=== PATIENT | female | born 1980 | race Caucasian/White ===

== ENCOUNTER 2021-07-19 09:03 | Emergency (ER) | payer SELFPAY ==
[~2021-07-19] VITALS: Ht 160 cm; Wt 84.0 kg
--- NOTE | 2021-07-19 09:13 | ED General ---
General Stated Complaint: DIZZINESS; LIGHT-HEADED; ABN EKG History of Present Illness Date Seen by Provider: July 19, 2021 Time Seen by Provider: 09:11 Initial Comments 40-year-old female presents with some episodes of feeling dizzy and lightheadedness. She reports that she been having them on and off for about a week. She does not know of anything that makes it better or worse. She reports that she checked her blood pressure during these episodes and neck is normal. She reports she has anxiety so sometimes she gets chest pain but feels it is likely from the anxiety. She also has some associated shortness of breath when she has these anxiety attacks. These however do not seem to correlate with her dizziness. She denies any recent illnesses, fever, chills, nausea or vomiting. Patient works as a EMT and reports that yesterday they did a EKG and they thought it was may be abnormal but she not sure how. Patient reports she just had a negative test at the clinic. Patient is not currently having any symptoms at this time Allergies and Home Medications Patient Home Medication List Home Medication List Reviewed: Yes Review of Systems Review of Systems Constitutional: see HPI; No chills; dizziness; No fever EENTM: no symptoms reported Respiratory: see HPI Cardiovascular: see HPI; No edema, No palpitations, No syncope Gastrointestinal: no symptoms reported Genitourinary: no symptoms reported Musculoskeletal: no symptoms reported Skin: no symptoms reported Psychiatric/Neurological: See HPI, Anxiety Hematologic/Lymphatic: No Symptoms Reported Immunological/Allergic: no symptoms reported Physical Exam Vital Signs Vital Signs - First Documented 07/19/21 09:09 Temp 36.5 Pulse 63 Resp 18 B/P (MAP) 132/83 (99) Pulse Ox 96 O2 Delivery Room Air Capillary Refill : Height, Weight, BMI Height: '" Weight: lbs. oz. kg; BMI Method: General Appearance: No Apparent Distress, WD/WN Neck: Normal Inspection, Non Tender Respiratory: Normal Breath Sounds, No Accessory Muscle Use Cardiovascular: Regular Rate, Rhythm, No Edema, Normal Peripheral Pulses Gastrointestinal: Non Tender, Soft Extremity: Normal Capillary Refill, Normal Range of Motion Neurologic/Psychiatric: Alert, Oriented x3, No Motor/Sensory Deficits, Normal Mood/Affect, tonsorial artist II-XII Norm as Tested, Abnormal Cerebellar Tests Skin: Normal Color, Warm/Dry Progress/Results/Core Measures Suspected Sepsis SIRS Temperature: Pulse: Respiratory Rate: Laboratory Tests 07/19/21 09:20: White Blood Count 9.2 Blood Pressure / Mean: Laboratory Tests 07/19/21 09:20: Creatinine 0.69, Platelet Count 280, Total Bilirubin 0.2 Results/Orders Lab Results Laboratory Tests Test 07/19/21 09:20 Range/Units White Blood Count 9.2 4.3-11.0 10^3/uL Red Blood Count 4.29 3.80-5.11 10^6/uL Hemoglobin 13.5 11.5-16.0 g/dL Hematocrit 38 35-52 % Mean Corpuscular Volume 88 80-99 fL Mean Corpuscular Hemoglobin 32 25-34 pg Mean Corpuscular Hemoglobin Concent 36 32-36 g/dL Red Cell Distribution Width 13.2 10.0-14.5 % Platelet Count 280 130-400 10^3/uL Mean Platelet Volume 10.6 9.0-12.2 fL Immature Granulocyte % (Auto) 0 % Neutrophils (%) (Auto) 51 42-75 % Lymphocytes (%) (Auto) 40 12-44 % Monocytes (%) (Auto) 7 0-12 % Eosinophils (%) (Auto) 1 0-10 % Basophils (%) (Auto) 0 0-10 % Neutrophils # (Auto) 4.7 1.8-7.8 10^3/uL Lymphocytes # (Auto) 3.7 1.0-4.0 10^3/uL Monocytes # (Auto) 0.7 0.0-1.0 10^3/uL Eosinophils # (Auto) 0.1 0.0-0.3 10^3/uL Basophils # (Auto) 0.0 0.0-0.1 10^3/uL Immature Granulocyte # (Auto) 0.0 0.0-0.1 10^3/uL Sodium Level 140 135-145 MMOL/L Potassium Level 4.1 3.6-5.0 MMOL/L Chloride Level 105 98-107 MMOL/L Carbon Dioxide Level 23 21-32 MMOL/L Anion Gap 12 5-14 MMOL/L Blood Urea Nitrogen 24 H 7-18 MG/DL Creatinine 0.69 0.60-1.30 MG/DL Estimat Glomerular Filtration Rate 113 BUN/Creatinine Ratio 35 Glucose Level 96 70-105 MG/DL Calcium Level 9.3 8.5-10.1 MG/DL Corrected Calcium 9.0 8.5-10.1 MG/DL Magnesium Level 2.1 1.6-2.4 MG/DL Total Bilirubin 0.2 0.1-1.0 MG/DL Aspartate Amino Transf (AST/SGOT) 23 5-34 U/L Alanine Aminotransferase (ALT/SGPT) 32 0-55 U/L Alkaline Phosphatase 89 40-136 U/L Troponin I < 0.30 <0.30 NG/ML C-Reactive Protein 0.38 <0.50 MG/DL Total Protein 7.6 6.4-8.2 GM/DL Albumin 4.4 3.2-4.5 GM/DL My Orders Orders - ALEJANDRA FULTON L DO Ed Iv/Invasive Line Start (07/19/21 09:13) Ekg Tracing (07/19/21 09:13) Monitor-Rhythm Ecg Trace Only (07/19/21 09:13) Cbc With Automated Diff (07/19/21 09:13) Comprehensive Metabolic Panel (07/19/21:13) Magnesium (07/19/21 09:13) Crp Fs (07/19/21 09:13) Troponin I Fs (07/19/21 09:13) Chest 1 View Ap/Pa Only (07/19/21 09:13) Vital Signs/I&O 07/19/21 07/19/21 09:09 09:58 Temp 36.5 36.5 Pulse 63 70 Resp 18 18 B/P (MAP) 132/83 (99) 102/82 Pulse Ox 96 95 O2 Delivery Room Air Room Air Capillary Refill : Progress Note : Progress Note Patient with no significant findings on labs. She has a negative EKG for any acute changes, negative troponin, negative chest x-ray and is not having symptoms at this time. I did recommend she keep a journal of when her episodes happen in activities, etc. I also encouraged her to follow-up with her primary care provider and consider a cardiology consult. Patient stable and discharged home ECG Initial ECG Impression Date: July 19, 2021 Initial ECG Impression Time: 09:14 Initial ECG Rhythm: Normal Sinus Comment low voltage QRS, T wave inversion V1-V3 no acute elevation or findings low voltage likely from lead placement and body habitus Diagnostic Imaging Diagonstic Imaging: Xray Plain Films/CT/US/NM/MRI: chest Comments Date of Exam:07/19/21 CHEST 1 VIEW AP/PA ONLY Indication: Dizziness. Findings: Lungs are clear. There is no failure, effusion or pneumothorax. Impression: No acute-appearing abnormality. Departure Impression Primary Impression: Dizziness Disposition: 01 HOME, SELF-CARE Condition: Stable Departure-Patient Inst. Referrals: BEN TOM APRN (PCP) Primary Care Physician [facility] (Family) Primary Care Physician Patient Instructions: Dizziness, Adult ED Add. Discharge Instructions: Please consider journaling your episodes of dizziness that would include possible times a day, activities, foods and any other pertinent information that you feel would help. Please follow-up with your primary care provider and discuss a possible cardiology consult for further evaluation Return to the ER as needed ALEJANDRA FULTON DO July 19, 2021 09:13
[2021-07-19 09:36] LABS: BASOPHILS % (AUTO) 0 % (0-10); EOSINOPHILS # (AUTO) 0.1 10^3/uL (0.0-0.3); EOSINOPHILS % (AUTO) 1 % (0-10); HEMATOCRIT 38 % (35-52); HEMOGLOBIN 13.5 g/dL (11.5-16.0); LYMPHOCYTES # (AUTO) 3.7 10^3/uL (1.0-4.0); LYMPHOCYTES % (AUTO) 40 % (12-44); MEAN CORPUSCULAR HEMOGLOBIN 32 pg (25-34); MEAN CORPUSCULAR HGB CONC 36 g/dL (32-36); MEAN CORPUSCULAR VOLUME 88 fL (80-99); MEAN PLATELET VOLUME 10.6 fL (9.0-12.2); MONOCYTES # (AUTO) 0.7 10^3/uL (0.0-1.0); MONOCYTES % (AUTO) 7 % (0-12); NEUTROPHILS # (AUTO) 4.7 10^3/uL (1.8-7.8); NEUTROPHILS % (AUTO) 51 % (42-75); PLATELET COUNT 280 10^3/uL (130-400); WHITE BLOOD COUNT 9.2 10^3/uL (4.3-11.0)
--- NOTE | 2021-07-19 09:46 | Diagnostic Imaging Report ---
Indication: Dizziness. Findings: Lungs are clear. There is no failure, effusion or pneumothorax. Impression: No acute-appearing abnormality. Dictated by: Dictated on workstation # [id number]
[2021-07-19 09:50] LABS: ALANINE AMINOTRANSFERASE 32 U/L (0-55); ALBUMIN 4.4 GM/DL (3.2-4.5); ALKALINE PHOSPHATASE 89 U/L (40-136); BILIRUBIN,TOTAL 0.2 MG/DL (0.1-1.0); BUN/CREATININE RATIO 35; CALCIUM 9.3 MG/DL (8.5-10.1); CARBON DIOXIDE 23 MMOL/L (21-32); CHLORIDE 105 MMOL/L (98-107); CREATININE SERUM 0.69 MG/DL (0.60-1.30); GFR ESTIMATED 113; GLUCOSE 96 MG/DL (70-105); MAGNESIUM 2.1 MG/DL (1.6-2.4); POTASSIUM 4.1 MMOL/L (3.6-5.0); SODIUM 140 MMOL/L (135-145); TOTAL PROTEIN 7.6 GM/DL (6.4-8.2)
[2021-07-19 09:58] VITALS: BP 102/82
== END 2021-07-19 09:59 | disposition home or self-care (01) ==
LOC: EDUNIT# 09:03 → ER FS 09:06
DX: R42 Dizziness and giddiness (principal)
CPT/HCPCS: 36415; 71045; 80053; 83735; 84484; 85025; 86141; 93005; 93041

== ENCOUNTER → 2022-05-01 | Outpatient (CLI) | payer BC ==
--- NOTE | 2022-05-01 17:50 | Diagnostic Imaging Report ---
INDICATION: Fracture. COMPARISON: I have no priors. FINDINGS: There is an avulsion fracture pattern without distraction horizontally oriented at the base of the 5th metatarsal. This appears subacute. No articular injury. The remaining bony structures unremarkable. IMPRESSION: Extraarticular base 5th avulsion fracture pattern nondisplaced radiographically appears partially healed and subacute. Dictated on workstation # [id number]
== END ==
LOC: RAD FS 11:00
PROVIDERS: ATTEND Nurse Practitioner
DX: S92.355D Nondisplaced fracture of fifth metatarsal bone, left foot, subsequent encounter for fracture with routine healing (principal); X58.XXXA Exposure to other specified factors, initial encounter
CPT/HCPCS: 73630

== ENCOUNTER → 2022-06-13 | Outpatient (CLI) | payer BC ==
--- NOTE | 2022-06-13 11:20 | Diagnostic Imaging Report ---
INDICATION: Follow-up fracture. EXAMINATION: Left foot on 06/13/2022. COMPARISON: 05/01/2022 FINDINGS: 3 views of the foot redemonstrate a fracture at the base of the 5th metatarsal. Mild increased diastases is noted likely due to changes of periosteal resorption secondary to healing. No callus formation is seen. There are no dislocations or fractures. IMPRESSION: 1. Fracture at the base of 5th metatarsal as discussed above. Dictated by: Dictated on workstation # [id number]
== END ==
LOC: RAD 09:30
PROVIDERS: ATTEND Nurse Practitioner
DX: S92.355D Nondisplaced fracture of fifth metatarsal bone, left foot, subsequent encounter for fracture with routine healing (principal); X58.XXXD Exposure to other specified factors, subsequent encounter
CPT/HCPCS: 73630

== ENCOUNTER 2022-11-17 16:51 | Emergency (ER) | payer BC ==
[~2022-11-17] VITALS: Ht 160 cm; Wt 84.0 kg
[2022-11-17] MEDS ORDERED: ACETAMINOPHEN 500 MG TABLET PO ONE (17:00)
[2022-11-17] MEDS ORDERED: NS IV 1000 ML 1,000 ML IV SCH (17:00)
[2022-11-17] MEDS ORDERED: KETOROLAC INJ 15 MG/ML VIAL IVP ONE (17:00)
[2022-11-17] MEDS ORDERED: PROCHLORPERAZINE INJ 10 MG/2ML VIAL IV ONE (17:00)
[2022-11-17] MEDS ORDERED: diphenhydrAMINE INJ 50 MG/ML VIAL IVP ONE (17:00)
--- NOTE | 2022-11-17 17:02 | ED Headache ---
General Stated Complaint: ORTIZ Source: patient Exam Limitations: no limitations History of Present Illness Date Seen by Provider: Nov 17, 2022 Time Seen by Provider: 16:49 Initial Comments 42-year-old female presents after sent from the [facility] clinic for the worst headache of her life. Symptoms started abruptly with sudden onset about 55 minutes to an hour ago. She has diffuse dull throbbing without radiation. She has nausea without vomiting. She was given p.o. Zofran at the [facility] clinic and sent here because she stated the headache was the worst of her life. She does have a remote history of migraine headaches but she has not had a migraine in several years per her report. She took 2 Aleve at the outset of her symptoms which did not really help. She denies any changes in vision. No upper or lower extremity weakness numbness or tingling. She is not on any blood thinning medications. She has had a tubal ligation and denies that she could be . All other systems reviewed and negative except documented per HPI. Voice recognition software was used to help create this chart Allergies and Home Medications Allergies Coded Allergies: No Known Drug Allergies (Unverified , 11/17/22) Patient Home Medication List Home Medication List Reviewed: Yes Butalb/Acetaminophen/Caffeine (Vghglb-Fdgowzfo-Wmiz 50-325-40) 50 Mg-325 Mg-40 Mg Tablet, 1 EACH PO Q6H Prescribed by: SRAVANI FITZPATRICK MD on 11/17/22 174 Ketorolac Tromethamine (Ketorolac Tromethamine) 10 Mg Tablet, 10 MG PO TID Prescribed by: SRAVANI FITZPATRICK MD on 11/17/22 173 Sumatriptan Succinate (Sumatriptan Succinate) 50 Mg Tablet, 50 MG PO ONCE Prescribed by: SRAVANI FITZPATRICK MD on 11/17/22 174 Review of Systems Review of Systems Constitutional: see HPI Past Wgtypsw-Ooumbw-Kvfnib Hx Patient Social History Tobacco Use?: No Use of E-Cig and/or Vaping dev: No Substance use?: No Alcohol Use?: No Immunizations Up To Date First/Initial COVID19 Vaccinat: 2020 Second COVID19 Vaccination Jens: 2020 Past Medical History Surgery/Hospitalization HX: ANXIETY DEPRESSION Physical Exam Vital Signs Vital Signs - First Documented 11/17/22 16:55 Temp 36.9 Pulse 86 Resp 18 B/P (MAP) 132/94 (107) Pulse Ox 97 O2 Delivery Room Air Capillary Refill : Height, Weight, BMI Height: '" Weight: lbs. oz. kg; 32.00 BMI Method: General Appearance: WD/WN, moderate distress (Appears to be in pain) HEENT: PERRL/EOMI, normal ENT inspection, pharynx normal Neck: non-tender, full range of motion, supple, other (No meningismus) Cardiovascular: regular rate, rhythm, no murmur Respiratory: chest non-tender, lungs clear, normal breath sounds, no respiratory distress, no accessory muscle use Gastrointestinal: normal bowel sounds, non tender, soft, no organomegaly Back: normal inspection, no vertebral tenderness Extremities: normal range of motion, normal capillary refill Psychiatric: alert Crainal Nerves: normal speech Coordination/Gait: normal finger to nose, normal gait Motor/Sensory: no motor deficit, no sensory deficit, no pronator drift Skin: normal color, warm/dry Progress/Results/Core Measures Results/Orders My Orders Orders - NANETTESRAVANI Pineda DO Ct Head Wo (11/17/22 16:59) Prochlorperazine Injection (Prochlorpera (11/17/22 17:00) Diphenhydramine Injection (Diphenhydram (11/17/22 17:00) Ketorolac Injection (Ketorolac Injection (11/17/22 17:00) Ns Iv 1000 Ml (Ns Iv 1000 Ml) (11/17/22 17:00) Acetaminophen Tablet (Acetaminophen Ta (11/17/22 17:00) Medications Given in ED Current Medications Medications Dose Ordered Sig/Saroj Route Start Time Stop Time Status Last Admin Dose Admin Acetaminophen 1,000 mg ONCE ONCE PO 11/17/22 17:00 11/17/22 17:01 DC 11/17/22 17:19 1,000 MG Diphenhydramine HCl 50 mg ONCE ONCE IVP 11/17/22 17:00 11/17/22 17:01 DC 11/17/22 17:17 50 MG Ketorolac Tromethamine 15 mg ONCE ONCE IVP 11/17/22 17:00 11/17/22 17:01 DC 11/17/22 17:13 15 MG Prochlorperazine Edisylate 10 mg ONCE ONCE IV 11/17/22 17:00 11/17/22 17:01 DC 11/17/22 17:17 10 MG Vital Signs/I&O 11/17/22 11/17/22 16:55 17:31 Temp 36.9 Pulse 86 81 Resp 18 16 B/P (MAP) 132/94 (107) 114/77 (89) Pulse Ox 97 94 O2 Delivery Room Air Room Air Departure Communication (Admissions) Patient is hemodynamically stable neurologically intact. Vital signs are normal. She has no meningismus and is afebrile, no evidence for meningitis at this time. She had a sudden onset severe headache which is the worst headache of her life so CT scan was undertaken which is normal with no evidence for blee ding. She is feeling better after IV Toradol Compazine Benadryl and fluids. She is given p.o. Tylenol. She be discharged home with Toradol, Fioricet. I will give her sumatriptan and to take as needed at the first sign of a migraine headache. Impression Primary Impression: Migraine Qualified Codes: G43.909 - Migraine, unspecified, not intractable, without status migrainosus Disposition: HOME, SELF-CARE Condition: Stable Departure-Patient Inst. Referrals: OLIVIA DRIVER APRN (PCP) Primary Care Physician JONATAN YOU MD (Family) Primary Care Physician Patient Instructions: Migraines (DC) Add. Discharge Instructions: Take the Fioricet and ketorolac as prescribed as needed. The sumatriptan is if you have any further migraines to take at the onset of your headache symptoms to help them from becoming full-blown migraine headaches. Increase your fluids at home. Rest as needed. Return to the emergency department for any severe concerns. Follow-up with your primary doctor for any nonemergent needs. Scripts Sumatriptan Succinate (Sumatriptan Succinate) 50 Mg Tablet 50 MG PO ONCE for Headache for 30 Days, #10 TAB Prov: SRAVANI FITZPATRICK DO 11/17/22 Butalb/Acetaminophen/Caffeine (Mgqhob-Nqvkptqm-Wnty 50-325-40) 50 Mg-325 Mg-40 Mg Tablet 1 EACH PO Q6H for Headache for 3 Days, #12 TAB Prov: SRAVANI FITZPATRICK DO 11/17/22 Ketorolac Tromethamine (Ketorolac Tromethamine) 10 Mg Tablet 10 MG PO TID for Pain for 3 Days, #9 TAB Prov: SRAVANI FITZPATRICK DO 11/17/22 SRAVANI FITZPATRICK DO Nov 17, 2022 17:02
--- NOTE | 2022-11-17 17:17 | Diagnostic Imaging Report ---
PROCEDURE: CT head without contrast. TECHNIQUE: Multiple contiguous axial images were obtained through the brain without the use of intravenous contrast. Auto Exposure Controls were utilized during the CT exam to meet ALARA standards for radiation dose reduction. INDICATION: Sudden onset headaches. COMPARISON: None available. FINDINGS: CT of the head demonstrates no evidence of an acute intracranial abnormality. There is no evidence of intracranial hemorrhage. There is no extra-axial fluid collection, mass effect or shift. Junior and white matter differentiation appear preserved. There is no abnormal hypodensity within the basal ganglia. The ventricles are appropriate in size and configuration. There is no evidence of hydrocephalus. The basilar cisterns are patent. The posterior fossa is unremarkable. Mastoids and visualized paranasal sinuses appear clear. Orbital contents are unremarkable. There is no calvarial abnormality. IMPRESSION: 1. No CT evidence of an acute intracranial abnormality. Dictated by: Dictated on workstation # [id number]
[2022-11-17] MEDS ORDERED: KETO10TA PO (17:39)
[2022-11-17] MEDS ORDERED: BUTA-235 PO (17:39)
[2022-11-17] MEDS ORDERED: SUMA50TA2 PO (17:42)
[2022-11-17 17:54] VITALS: BP 116/82
== END 2022-11-17 17:58 | disposition home or self-care (01) ==
LOC: EDUNIT# 16:51 → ER FS 16:52
DX: G43.909 Migraine, unspecified, not intractable, without status migrainosus (principal)
CPT/HCPCS: 70450